=== PATIENT | female | born 1950 | race Two or more races ===

== ENCOUNTER 2019-07-22 18:52 | Emergency (ER) | payer OTHER ==
[~2019-07-22] VITALS: Ht 160 cm; Wt 84.4 kg
[~2019-07-22 18:52] MED LIST: MECL-77 PO; ONDA4TAB14 PO
[2019-07-22 19:10] VITALS: Ht 160 cm; Wt 84.4 kg
[2019-07-22] MEDS ORDERED: ONDANSETRON 4 MG INJ IV STA (20:01)
[2019-07-22] MEDS ORDERED: SOD CHLORIDE 0.9% 1,000 ML IV ONE (20:30)
[2019-07-22] MEDS ORDERED: MECLIZINE 12.5 MG TAB PO ONE (20:30)
[2019-07-22 23:10] VITALS: BP 144/78; PULSE 88; RESP 16
== END 2019-07-22 23:20 | disposition home or self-care (01) ==
LOC: FTE 18:52
DX: R42 Dizziness and giddiness (principal); I10 Essential (primary) hypertension; R11.2 Nausea with vomiting, unspecified
CPT/HCPCS: 36415; 70450; 71045; 80053; 81001; 84484; 85025; 87086; 93005; 96374; 99285; J2405; J7030